=== PATIENT | female | born 2000 | race Hispanic/Latino ===

== ENCOUNTER 2022-01-12 09:02 | Inpatient (IN) | payer OTHER ==
[~2022-01-12] VITALS: Ht 157.5 cm; Wt 73.5 kg
[2022-01-12] MEDS: PRENATAL VITAMINS CHEWABLE TABLET PO SCH (09:00)
[2022-01-12 09:49] VITALS: BP 103/56
[2022-01-12] MEDS ORDERED: LR 1,000 ML IV SCH ×4 (09:50→15:00)
[2022-01-12] MEDS ORDERED: BICITRA 30ML SOLN UDC PO ONE ×2 (10:25→11:10)
[2022-01-12] MEDS ORDERED: ceFAZolin SOD 2 GM in IV 1 EA IV ONE ×2 (10:25→11:10)
[2022-01-12] MEDS ORDERED: LR 1,000 ML IV ONE (10:25)
[2022-01-12] MEDS ORDERED: ACETAMINOPHEN 650 MG SUPP PR ONE ×2 (10:30→11:10)
[2022-01-12] MEDS ORDERED: BUPIVACAINE HCL 0.25% 10ML VIAL SC ONE ×2 (10:30→11:10)
[2022-01-12] MEDS ORDERED: AZITHROMYCIN INJ 500 MG, VIAL MATE ADAPTER 1 EACH in NS 250 ML IV ONE ×2 (10:30→11:10)
[2022-01-12 10:48] LABS: HEMATOCRIT 33.6 % (36.0-47.0); HEMOGLOBIN 10.5 g/dl (12.0-15.5); MEAN CORPUSCULAR HEMOGLOBIN 24.6 pg (27.0-33.0); MEAN CORPUSCULAR HGB CONC 31.3 g/dl (32.0-36.5); MEAN CORPUSCULAR VOLUME 78.7 fl (80.0-96.0); PLATELET COUNT, AUTOMATED 163 10^3/uL (150-450); RED BLOOD COUNT 4.27 10^6/uL (4.00-5.40); WHITE BLOOD COUNT 8.8 10^3/uL (4.0-10.0)
[2022-01-12] MEDS ORDERED: OXYTOCIN DRIP 30 UNITS in IV 1 EA IV PRN (11:10)
[2022-01-12] MEDS ORDERED: TRANEXAMIC ACID INJection 1,000 MG in NS 100 ML IV PRN (11:10)
[2022-01-12] MEDS ORDERED: LACTATED RINGER'S 1000 ML IV ONE (11:10)
[2022-01-12] MEDS ORDERED: METHYLERGONOVINE MALEATE 0.2 MG/ML VIAL (J2210) IM PRN (11:10)
[2022-01-12] MEDS ORDERED: OXYTOCIN INJ 10 UNITS/ML VIAL (J2590) IV PRN (11:10)
[2022-01-12] MEDS ORDERED: MORPHINE PRES-FREE INJ 10 MG/10 ML VIAL As Ordered ONE ×2 (12:15→14:25)
[2022-01-12] MEDS ORDERED: OXYTOCIN INJ 10 UNITS/ML VIAL (J2590) As Ordered ONE ×2 (12:15→14:13)
[2022-01-12] MEDS ORDERED: dexameTHASONE 4 MG/ML 1ML VIAL (J1100 PER 1MG) As Ordered ONE (14:21)
[2022-01-12] MEDS ORDERED: ONDANSETRON 4MG 2ML VIAL As Ordered ONE (14:21)
[2022-01-12] MEDS ORDERED: KETOROLAC 60MG 2ML VIAL As Ordered ONE (14:21)
[2022-01-12 14:27] LABS: CORD GAS ABE V -1.1; CORD GAS HCO3 V 23.9 MEQ/L; CORD GAS O2 SAT V 74.8 %; CORD GAS PCO2 V 41.3 mmHg; CORD GAS PH V 7.381 UNITS; CORD GAS PO2 V 29.4 mmHg; CORD GAS TCO2 V 25.2 MEQ/L
[2022-01-12 14:30] LABS: CORD GAS ABE A -2.6; CORD GAS HCO3 A 22.4 MEQ/L; CORD GAS O2 SAT A 81.2 %; CORD GAS PCO2 A 39.6 mmHg; CORD GAS PH A 7.37 UNITS; CORD GAS PO2 A 34.9 mmHg; CORD GAS SBC A 21.9 MEQ/L; CORD GAS TCO2 A 23.6 MEQ/L
[2022-01-12] MEDS ORDERED: fentaNYL 100 MCG/2 ML INJECTION As Ordered ONE (14:31)
[2022-01-12] MEDS ORDERED: propofoL 200 MG/20 ML VIAL As Ordered ONE (14:40)
[2022-01-12] MEDS ORDERED: TRANEXAMIC ACID INJection 1,000 MG in NS 100 ML IV ONE (15:00)
[2022-01-12] MEDS ORDERED: diphenhydrAMINE 50MG/ML VIAL (J1200) IV PRN (15:00)
[2022-01-12] MEDS ORDERED: **NOTE PATIENT COMMENT** MISC XX SCH (15:00)
[2022-01-12] MEDS ORDERED: SIMETHICONE 80MG CHEW TAB PO PRN (15:00)
[2022-01-12] MEDS ORDERED: oxyCODONE 5MG TAB PO PRN (15:00)
[2022-01-12] MEDS ORDERED: ANUSOL HC CREAM 30GM TOP PRN (15:00)
[2022-01-12] MEDS ORDERED: PERCOCET 5MG/325MG TAB PO PRN ×2 (15:00)
[2022-01-12] MEDS ORDERED: ACETAMINOPHEN TAB 650MG DOSE (2X325MG) PO PRN (15:00)
[2022-01-12] MEDS ORDERED: RHOGAM 300 MCG (1500 IU) INJ (J2790) IM SCH (15:00)
[2022-01-12] MEDS ORDERED: fentaNYL 100 MCG/2 ML INJECTION IV PRN (15:00)
[2022-01-12] MEDS ORDERED: METHYLERGONOVINE MALEATE 0.2 MG TAB PO PRN (15:00)
[2022-01-12] MEDS ORDERED: OXYTOCIN DRIP 30 UNITS in IV 1 EA IV ONE (15:00)
[2022-01-12] MEDS ORDERED: NALOXONE INJ 0.4MG/1ML VIAL (J2310 PER 1MG) IV PRN ×2 (15:00)
[2022-01-12] MEDS ORDERED: MEPERIDINE INJ 25 MG/ML VIAL (J2175) IV PRN (15:00)
[2022-01-12] MEDS ORDERED: OXYTOCIN DRIP 30 UNITS in IV 1 EA IV SCH (15:00)
[2022-01-12] MEDS ORDERED: DOCUSATE SODIUM 100MG CAPSULE PO PRN (15:00)
[2022-01-12] MEDS ORDERED: ACETAMINOPHEN 500 MG TAB PO PRN (15:00)
[2022-01-12] MEDS ORDERED: MOM 30ML SUSPENSION UDC PO PRN (15:00)
[2022-01-12] MEDS ORDERED: ONDANSETRON 4MG 2ML VIAL IV PRN (15:00)
[2022-01-12] MEDS ORDERED: METOCLOPRAMIDE INJ 10MG/2ML VIAL (J2765 PER 1) IV PRN ×2 (15:00)
[2022-01-12] MEDS ORDERED: OXYTOCIN INJ 10 UNITS/ML VIAL (J2590) IV ONE (15:00)
[2022-01-12] MEDS: SLF 3 ML SYR IV SCH ×2 (15:21→20:52)
[2022-01-12] MEDS ORDERED: OXYTOCIN 30 UNITS IN 0.9% NaCl 500ML IV BAG (J2590) As Ordered ONE (15:23)
[2022-01-12] MEDS ORDERED: oxyCODONE 5MG TAB As Ordered ONE (15:42)
[2022-01-12] MEDS: LR 1,000 ML IV SCH ×2 (15:45→20:35)
[2022-01-12 16:30] VITALS: BP 113/64
[2022-01-12 17:05] VITALS: BP 113/52
[2022-01-12 18:00] VITALS: BP 106/54
[2022-01-12 18:54] VITALS: BP 110/54
[2022-01-12] MEDS: KETOROLAC 30 MG/ML 1ML VIAL IV SCH (20:34)
[2022-01-12 22:30] VITALS: BP 104/62
[2022-01-13 02:15] VITALS: BP 107/64
[2022-01-13] MEDS: KETOROLAC 30 MG/ML 1ML VIAL IV SCH ×2 (02:21→08:15)
[2022-01-13] MEDS: LR 1,000 ML IV SCH (02:23)
[2022-01-13] MEDS: SLF 3 ML SYR IV SCH (02:26)
[2022-01-13 06:00] VITALS: BP 95/55
[2022-01-13] MEDS: PRENATAL VITAMINS CHEWABLE TABLET PO SCH (08:15)
[2022-01-13 10:00] VITALS: BP 114/58
[2022-01-13] MEDS ORDERED: FAMOTIDINE 20 MG TAB PO PRN (12:00)
[2022-01-13] MEDS: CALCIUM CARBONATE 500 MG CHEW U/D PO SCH ×2 (13:33→17:30)
[2022-01-13 14:00] VITALS: BP 131/70
[2022-01-13] MEDS ORDERED: IBUPROFEN 600MG TAB PO PRN (16:00)
[2022-01-13 18:00] VITALS: BP 111/66
[2022-01-13 21:00] VITALS: BP 111/58
[2022-01-14 06:00] VITALS: BP 107/68
[2022-01-14 08:08] LABS: HEMATOCRIT 30.8 % (36.0-47.0); HEMOGLOBIN 9.5 g/dl (12.0-15.5); MEAN CORPUSCULAR HEMOGLOBIN 24.2 pg (27.0-33.0); MEAN CORPUSCULAR HGB CONC 30.8 g/dl (32.0-36.5); MEAN CORPUSCULAR VOLUME 78.6 fl (80.0-96.0); PLATELET COUNT, AUTOMATED 152 10^3/uL (150-450); RED BLOOD COUNT 3.92 10^6/uL (4.00-5.40); WHITE BLOOD COUNT 9.8 10^3/uL (4.0-10.0)
[2022-01-14] MEDS: CALCIUM CARBONATE 500 MG CHEW U/D PO SCH (08:09)
[2022-01-14] MEDS: PRENATAL VITAMINS CHEWABLE TABLET PO SCH (08:09)
[2022-01-14] MEDS ORDERED: BOOSTRIX/ADACEL VACCINE (DIPHTH/PERTUSS/ACELL/TETANUS) 0.5ML SYR IM.IMMUN ONE (09:00)
[2022-01-14] MEDS ORDERED: ENOXAPARIN 40MG/0.4ML SYRINGE (J1650 PER 10MG) SC SCH (09:00)
[2022-01-14] MEDS ORDERED: MEASLES,MUMPS,RUBELLA VACCINE INJ (MMR-II) (90707) SC.IMMUN ONE (09:00)
[2022-01-14] MEDS ORDERED: COLA100C5 PO (10:34)
[2022-01-14] MEDS ORDERED: IBUP-1022 PO (10:34)
[2022-01-14] MEDS ORDERED: ACET-683 PO (10:34)
== END 2022-01-14 11:30 | disposition home or self-care (01) | DRG 785 ==
LOC: M LDI 09:02 → M PED 18:23
PROVIDERS: ADMIT Obstetrics & Gynecology; ATTEND Obstetrics & Gynecology
PROC: 0UL70CZ Occlusion of Bilateral Fallopian Tubes with Extraluminal Device, Open Approach (ICD-10-PCS; 2022-01-12)
PROC: 10D00Z1 Extraction of Products of Conception, Low, Open Approach (ICD-10-PCS; principal; 2022-01-12 11:30)
DX: O34.211 Maternal care for low transverse scar from previous cesarean delivery (principal); Z3A.38 38 weeks gestation of pregnancy; Z37.0 Single live birth; Z30.2 Encounter for sterilization; O69.81X0 Labor and delivery complicated by cord around neck, without compression, not applicable or unspecified